=== PATIENT | male | born 1945 | race Hispanic/Latino ===

== ENCOUNTER 2022-04-03 16:07 | Emergency (ER) | payer MEDICARE ==
[~2022-04-03] VITALS: Ht 157.5 cm; Wt 83.0 kg
[~2022-04-03 16:07] MED LIST: AMLO-258 PO; GLIP10TA9 PO; HYDR25TA PO; LOSA100T58 PO; MAGN400C PO; METF-446 PO; PRAV40TA3 PO; [UNRECOGNIZED DRUG - CODE] PO
[2022-04-03 17:43] LABS: BASOPHILS % (AUTO) 0.4 % (0.0-5.0); EOSINOPHILS % (AUTO) 3.4 % (0.0-8.0); HEMATOCRIT 34.4 % (42-54); LYMPHOCYTES % (AUTO) 28.9 % (21.0-51.0); MEAN CORPUSCULAR HEMOGLOBIN 27.5 pg (27.0-33.0); MEAN CORPUSCULAR HGB CONC 31.4 g/dL (32.0-36.0); MEAN CORPUSCULAR VOLUME 87.5 fL (79-99); MONOCYTES % (AUTO) 8.2 % (3.0-13.0); NEUTROPHILS % (AUTO) 58.2 % (40.0-77.0); PLATELET COUNT (AUTO) 318 K/uL (130-400); RED BLOOD CELL COUNT(AUTO) 3.93 MIL/uL (4.50-6.20); RED CELL DISTRIBUTION WIDTH 12.8 % (11.0-15.5); WHITE BLOOD COUNT (AUTO) 12.4 K/uL (4.8-10.8)
[2022-04-03 17:52] LABS: CREATININE 2.2 mg/dL (0.5-1.5); POTASSIUM 4.4 mmol/L (3.5-5.1)
[2022-04-03 17:57] LABS: ALBUMIN 3.4 g/dL (3.5-5.0); BILIRUBIN,TOTAL 0.2 mg/dL (0.2-1.0); TOTAL PROTEIN, SERUM 7.8 g/dL (6.0-8.3)
[2022-04-03 18:07] LABS: B-TYPE NATRIURETIC PEPTIDE 398 pg/mL (0-100)
[2022-04-03 18:13] LABS: APPEARANCE,URINE Clear (CLEAR); BILIRUBIN,URINE Negative (NEGATIVE); COLOR,URINE Yellow (YELLOW); GLUCOSE, URINE (UA) TRACE mg/dL (NEGATIVE); KETONES,URINE Negative (NEGATIVE); LEUKOCYTE ESTERASE ,URINE Negative (NEGATIVE); NITRATE,URINE Negative (NEGATIVE); OCCULT BLOOD,URINE Trace (NEGATIVE); PH,URINE 5.5 (5.0-8.0); PROTEIN,URINE 300 mg/dL (NEGATIVE); UROBILINOGEN,URINE 0.2 mg/dL (0.2-1.0)
[2022-04-03 18:29] LABS: BACTERIA,URINE Rare /HPF (None Seen); RBC,URINE 0-1 /HPF (0-1); SQUAMOUS EPITHELIAL CELL,UR Rare /HPF (0-2); WBC,URINE 0-1 /HPF (0-1)
[2022-04-03] MEDS ORDERED: IPRATROPIUM/ALBUTEROL SULFATE 3 ML SOLUTION IH ONE (18:30)
[2022-04-03] MEDS ORDERED: SOLU-MEDROL 125MG VIAL IVP ONE (18:30)
[2022-04-03] MEDS ORDERED: CEPH500B PO (19:55)
[2022-04-03 19:59] VITALS: BP 145/68
== END 2022-04-03 20:03 | disposition home or self-care (01) ==
LOC: EDH 16:07
DX: J20.9 Acute bronchitis, unspecified (principal); E11.9 Type 2 diabetes mellitus without complications; E78.00 Pure hypercholesterolemia, unspecified; I10 Essential (primary) hypertension; Z79.899 Other long term (current) drug therapy; Z79.84 Long term (current) use of oral hypoglycemic drugs; Z98.890 Other specified postprocedural states
CPT/HCPCS: 36415; 71045; 80053; 81001; 83880; 84484; 85025; 94640; 96374; 99285; J2930

== ENCOUNTER → 2022-11-22 | Outpatient (CLI) | payer MEDICARE ==
[~2022-11-22] MED LIST changes: +CEPH500B PO
== END | disposition home or self-care (01) ==
LOC: SHCH 12:43
PROVIDERS: ATTEND Internal Medicine
DX: I34.0 Nonrheumatic mitral (valve) insufficiency (principal); I11.9 Hypertensive heart disease without heart failure
CPT/HCPCS: 93306

== ENCOUNTER 2022-12-02 02:41 | Inpatient (IN) | payer MEDICARE ==
[~2022-12-02] VITALS: Ht 157.5 cm; Wt 88.5 kg
[2022-12-02 04:23] LABS: BASOPHILS % (AUTO) 0.2 % (0.0-5.0); EOSINOPHILS % (AUTO) 1.9 % (0.0-8.0); HEMATOCRIT 36.9 % (42-54); LYMPHOCYTES % (AUTO) 41.7 % (21.0-51.0); MEAN CORPUSCULAR HEMOGLOBIN 28.7 pg (27.0-33.0); MEAN CORPUSCULAR HGB CONC 31.7 g/dL (32.0-36.0); MEAN CORPUSCULAR VOLUME 90.4 fL (79-99); MONOCYTES % (AUTO) 8.5 % (3.0-13.0); NEUTROPHILS % (AUTO) 47.3 % (40.0-77.0); PLATELET COUNT (AUTO) 196 K/uL (130-400); RED BLOOD CELL COUNT(AUTO) 4.08 MIL/uL (4.50-6.20); RED CELL DISTRIBUTION WIDTH 13.7 % (11.0-15.5); WHITE BLOOD COUNT (AUTO) 10.3 K/uL (4.8-10.8)
[2022-12-02 04:28] LABS: APPEARANCE,URINE CLEAR (CLEAR); BILIRUBIN,URINE NEGATIVE (NEGATIVE); COLOR,URINE LIGHT-YELLOW (YELLOW); GLUCOSE, URINE (UA) 50 mg/dL (NEGATIVE); KETONES,URINE NEGATIVE (NEGATIVE); LEUKOCYTE ESTERASE ,URINE NEGATIVE Leu/uL (NEGATIVE); NITRATE,URINE NEGATIVE (NEGATIVE); OCCULT BLOOD,URINE NEGATIVE (NEGATIVE); PROTEIN,URINE 200 mg/dL (NEGATIVE); UROBILINOGEN,URINE 0.2 mg/dL (0.2-1.0)
[2022-12-02 04:32] LABS: MUCUS,URINE RARE LPF (None Seen); RBC,URINE 0-1 /HPF (0-1); WBC,URINE 0-1 /HPF (0-1)
[2022-12-02 04:44] LABS: ALBUMIN 3.5 g/dL (3.5-5.0); POTASSIUM 4.4 mmol/L (3.5-5.1); TOTAL PROTEIN, SERUM 7.2 g/dL (6.0-8.3)
[2022-12-02] MEDS ORDERED: HYDRALAZINE 20MG/ML VIAL ONE (07:41)
[2022-12-02] MEDS ORDERED: HYDR-4154 PO (07:51)
[2022-12-02] MEDS ORDERED: ROSU10TA28 PO (07:51)
[2022-12-02] MEDS ORDERED: PIOG30TA70 PO (07:51)
[2022-12-02] MEDS ORDERED: ASPI-1005 PO (07:51)
[2022-12-02] MEDS ORDERED: CARV6.25 PO (07:51)
[2022-12-02] MEDS ORDERED: HYDRALAZINE 20MG/ML VIAL IV ONE (08:00)
[2022-12-02] MEDS ORDERED: IOHEXOL 350 MG/ML 100ML INFUS..BTL IV ONE (08:32)
[2022-12-02] MEDS ORDERED: LABETALOL 20MG VIAL IV SCH (09:00)
[2022-12-02] MEDS ORDERED: ONDANSETRON 4MG INJ IVP ONE (11:00)
[2022-12-02] MEDS ORDERED: MORPHINE 2 MG SYG IVP SCH (11:00)
[2022-12-02] MEDS ORDERED: ACETAMINOPHEN 500 MG TABLET PO PRN (12:30)
[2022-12-02] MEDS ORDERED: HYDROMORPHONE 0.5 MG SYG (0.5MG/0.5ML) IVP PRN (12:30)
[2022-12-02] MEDS ORDERED: HYDRALAZINE 20MG/ML VIAL IV PRN (12:30)
[2022-12-02] MEDS: PANTOPRAZOLE 40 MG/VIAL IVP SCH ×2 (12:30→12:44)
[2022-12-02 12:39] LABS: PROTHROMBIN TIME 10.9 SEC (9.6-11.6)
[2022-12-02 12:40] LABS: PARTIAL THROMBOPLASTIN TIME 29.4 SEC (26.3-35.5)
[2022-12-02 12:43] LABS: CARBON DIOXIDE 28 mmol/L (21-32); CHLORIDE 106 mmol/L (101-111); CREATININE 1.8 mg/dL (0.5-1.5); GLOMERULAR FILTR. RATE CALC 39 mL/min (>60); GLUCOSE,RANDOM 150 mg/dL (70-105); POTASSIUM 3.7 mmol/L (3.5-5.1); SODIUM SERUM 143 mmol/L (136-145); UREA NITROGEN, BLOOD 30 mg/dL (7-18)
[2022-12-02] MEDS: CARVEDILOL 6.25 MG TABLET PO SCH (12:43)
[2022-12-02] MEDS: HYDRALAZINE 25MG TABLET PO SCH ×2 (12:43→20:22)
[2022-12-02] MEDS: CEFTRIAXONE 1G VIAL IVP SCH (12:43)
[2022-12-02] MEDS: FUROSEMIDE 20MG VIAL IV SCH ×2 (12:44→20:23)
[2022-12-02 12:45] LABS: CRP QUANTITATIVE < 2.00 mg/L (0.00-9.0)
[2022-12-02] MEDS ORDERED: MAGNESIUM 2GM PREMIX 50ML 50 ML IV SCH (13:00)
[2022-12-02] MEDS ORDERED: LIDOCAINE 5% TOPICAL PATCH TP ONE (13:00)
[2022-12-02] MEDS ORDERED: LOSARTAN 50 MG TABLET PO SCH (13:00)
[2022-12-02] MEDS ORDERED: IPRATROPIUM 0.5 MG/2.5 ML INH IH PRN (13:00)
[2022-12-02 13:31] LABS: HEMOGLOBIN A1C 9.1 % (4.0-6.0)
[2022-12-02 13:40] LABS: THYROID STIMULATING HORMONE 3.14 uIU/mL (0.36-3.74)
[2022-12-02 13:59] LABS: INR 0.95 (0.85-1.15); PROTHROMBIN TIME 10.4 SEC (9.6-11.6)
[2022-12-02 14:01] LABS: PARTIAL THROMBOPLASTIN TIME 30.5 SEC (26.3-35.5)
[2022-12-02] MEDS: INSULIN HUMULIN R 100 UNIT/ML 3ML SQ SCH ×2 (16:30→20:23)
[2022-12-02 17:58] LABS: POTASSIUM 4.1 mmol/L (3.5-5.1)
[2022-12-02 20:20] VITALS: BP 152/74
[2022-12-02] MEDS: ATORVASTATIN 20 MG TABLET PO SCH (20:21)
[2022-12-02] MEDS: TAMSULOSIN HCL 0.4 MG CAP.ER.24H PO SCH (20:22)
[2022-12-02] MEDS: HEPARIN 5,000 UNIT VIAL SQ SCH (20:23)
[2022-12-02 20:52] VITALS: BP 182/80
[2022-12-03] VITALS (8 sets, daily range): BP systolic 111–142; BP diastolic 59–77
[2022-12-03] MEDS: CARVEDILOL 6.25 MG TABLET PO SCH (01:02)
[2022-12-03 04:17] LABS: BASOPHILS % (AUTO) 0.2 % (0.0-5.0); EOSINOPHILS % (AUTO) 0.2 % (0.0-8.0); LYMPHOCYTES % (AUTO) 29.5 % (21.0-51.0); MEAN CORPUSCULAR HEMOGLOBIN 28.6 pg (27.0-33.0); MEAN CORPUSCULAR HGB CONC 31.5 g/dL (32.0-36.0); MEAN CORPUSCULAR VOLUME 90.9 fL (79-99); MONOCYTES % (AUTO) 6.5 % (3.0-13.0); NEUTROPHILS % (AUTO) 63.1 % (40.0-77.0); PLATELET COUNT (AUTO) 194 K/uL (130-400); RED BLOOD CELL COUNT(AUTO) 3.74 MIL/uL (4.50-6.20); RED CELL DISTRIBUTION WIDTH 13.8 % (11.0-15.5)
[2022-12-03 04:41] LABS: ALBUMIN 3.4 g/dL (3.5-5.0); CREATININE 2.3 mg/dL (0.5-1.5); MAGNESIUM 2.1 mg/dL (1.80-2.40); POTASSIUM 4.2 mmol/L (3.5-5.1); TOTAL PROTEIN, SERUM 6.7 g/dL (6.0-8.3)
[2022-12-03] MEDS: FUROSEMIDE 20MG VIAL IV SCH (04:47)
[2022-12-03] MEDS: INSULIN HUMULIN R 100 UNIT/ML 3ML SQ SCH ×4 (05:32→19:42)
[2022-12-03] MEDS: HYDRALAZINE 25MG TABLET PO SCH ×3 (06:12→20:39)
[2022-12-03 09:27] LABS: PROTEIN,URINE RANDOM 238.4 mg/dL (0-11.9)
[2022-12-03] MEDS: ASPIRIN 81MG CHEW TAB PO SCH (09:32)
[2022-12-03] MEDS: HEPARIN 5,000 UNIT VIAL SQ SCH ×2 (09:38→20:39)
[2022-12-03] MEDS: PANTOPRAZOLE 40 MG/VIAL IVP SCH ×2 (12:30→12:54)
[2022-12-03] MEDS: CEFTRIAXONE 1G VIAL IVP SCH (12:55)
[2022-12-03] MEDS: SPIRONOLACTONE 25 MG TAB PO SCH (16:13)
[2022-12-03] MEDS: CLONIDINE HCL 0.1 MG TABLET PO SCH ×2 (16:15→19:43)
[2022-12-03] MEDS: AMLODIPINE 5 MG TAB PO SCH (16:15)
[2022-12-03] MEDS: TAMSULOSIN HCL 0.4 MG CAP.ER.24H PO SCH (20:38)
[2022-12-03] MEDS: ATORVASTATIN 20 MG TABLET PO SCH (20:39)
[2022-12-04] VITALS: BP 117/57
[2022-12-04] MEDS: HYDRALAZINE 25MG TABLET PO SCH ×2 (03:47→12:48)
[2022-12-04 04:00] VITALS: BP 137/55
[2022-12-04] MEDS: INSULIN HUMULIN R 100 UNIT/ML 3ML SQ SCH ×2 (05:39→11:56)
[2022-12-04 08:00] VITALS: BP 138/66
[2022-12-04] MEDS: METOCLOPRAMIDE 10 MG/2 ML VIAL IVP SCH ×2 (08:44→11:56)
[2022-12-04] MEDS: ASPIRIN 81MG CHEW TAB PO SCH (08:44)
[2022-12-04] MEDS: AMLODIPINE 5 MG TAB PO SCH (08:44)
[2022-12-04] MEDS: CLONIDINE HCL 0.1 MG TABLET PO SCH (08:44)
[2022-12-04] MEDS: SPIRONOLACTONE 25 MG TAB PO SCH (08:45)
[2022-12-04] MEDS: HEPARIN 5,000 UNIT VIAL SQ SCH (08:50)
[2022-12-04 08:52] LABS: BASOPHILS % (AUTO) 0.2 % (0.0-5.0); EOSINOPHILS % (AUTO) 1.6 % (0.0-8.0); HEMATOCRIT 35.9 % (42-54); LYMPHOCYTES % (AUTO) 43.4 % (21.0-51.0); MEAN CORPUSCULAR HEMOGLOBIN 28.1 pg (27.0-33.0); MEAN CORPUSCULAR HGB CONC 31.2 g/dL (32.0-36.0); MEAN CORPUSCULAR VOLUME 90.2 fL (79-99); MONOCYTES % (AUTO) 8.3 % (3.0-13.0); NEUTROPHILS % (AUTO) 46.1 % (40.0-77.0); PLATELET COUNT (AUTO) 197 K/uL (130-400); RED BLOOD CELL COUNT(AUTO) 3.98 MIL/uL (4.50-6.20); RED CELL DISTRIBUTION WIDTH 13.3 % (11.0-15.5); WHITE BLOOD COUNT (AUTO) 8.5 K/uL (4.8-10.8)
[2022-12-04 09:07] LABS: % IRON SATURATION 28.6 % (30-44)
[2022-12-04 09:13] LABS: B-TYPE NATRIURETIC PEPTIDE 45 pg/mL (0-100)
[2022-12-04 09:32] LABS: CREATININE 2.7 mg/dL (0.5-1.5); MAGNESIUM 2.2 mg/dL (1.80-2.40); POTASSIUM 3.9 mmol/L (3.5-5.1)
[2022-12-04] MEDS ORDERED: AMLO-257 PO (10:56)
[2022-12-04] MEDS ORDERED: CLON0.1T2 PO (10:56)
[2022-12-04] MEDS ORDERED: TAMS-1 PO (10:56)
[2022-12-04] MEDS ORDERED: SPIR25TA6 PO (10:56)
[2022-12-04] MEDS ORDERED: HYDR-4154 PO (10:56)
[2022-12-04] MEDS ORDERED: METO5SOL23 PO (10:56)
[2022-12-04 12:00] VITALS: BP 113/63
[2022-12-04] MEDS: CEFTRIAXONE 1G VIAL IVP SCH (12:43)
[2022-12-04] MEDS: PANTOPRAZOLE 40 MG/VIAL IVP SCH (12:49)
[2022-12-04 16:00] VITALS: BP 110/67
[2022-12-04] MEDS ORDERED: CARVEDILOL 6.25 MG TABLET PO SCH (21:00)
== END 2022-12-04 17:15 | disposition home or self-care (01) | DRG 291 ==
LOC: EDH 02:41 → EDHIP 12:26 → 4DH 18:27
PROVIDERS: ADMIT Internal Medicine; ATTEND Internal Medicine
DX: I13.0 Hypertensive heart and chronic kidney disease with heart failure and stage 1 through stage 4 chronic kidney disease, or unspecified chronic kidney disease (principal); I50.33 Acute on chronic diastolic (congestive) heart failure; I47.20 Ventricular tachycardia, unspecified; N17.9 Acute kidney failure, unspecified; Z16.24 Resistance to multiple antibiotics; E11.43 Type 2 diabetes mellitus with diabetic autonomic (poly)neuropathy; I16.0 Hypertensive urgency; E11.22 Type 2 diabetes mellitus with diabetic chronic kidney disease; E66.9 Obesity, unspecified; E78.00 Pure hypercholesterolemia, unspecified; K31.84 Gastroparesis; N18.32 Chronic kidney disease, stage 3b; N40.0 Benign prostatic hyperplasia without lower urinary tract symptoms; G47.33 Obstructive sleep apnea (adult) (pediatric); Z79.82 Long term (current) use of aspirin; Z79.84 Long term (current) use of oral hypoglycemic drugs; Z79.899 Other long term (current) drug therapy; Z87.442 Personal history of urinary calculi; Z91.199 Patient's noncompliance with other medical treatment and regimen due to unspecified reason; Z98.1 Arthrodesis status; Z68.35 Body mass index [BMI] 35.0-35.9, adult
CPT/HCPCS: 36415; 71045; 74177; 76705; 76770; 80048; 80053; 81001; 82550; 82570; 82607; 82728; 82746; 82948; 83036; 83540; 83550; 83605; 83690; 83735; 83880; 84145; 84156; 84300; 84443; 84484; 85025; 85045; 85610; 85651; 85730; 86140; 87088; 87635; 87804; 93005; 93970; 93975; C9113; G0378; J0360; J0696; J1170; J1644; J1815; J1940; J2405; J2765; J3475; J3490; Q9967

== ENCOUNTER → 2023-03-17 | Outpatient (CLI) | payer MEDICARE ==
[~2023-03-17] MED LIST changes: +AMLO-257 PO; -AMLO-258 PO; +ASPI-1005 PO; -CEPH500B PO; +CLON0.1T2 PO; +HYDR-4154 PO; -HYDR25TA PO; -LOSA100T58 PO; -MAGN400C PO; -METF-446 PO; +METO5SOL23 PO; +PIOG30TA70 PO; -PRAV40TA3 PO; +ROSU10TA28 PO; +SPIR25TA6 PO; +TAMS-1 PO
== END | disposition home or self-care (01) ==
LOC: SHCH 08:05
PROVIDERS: ATTEND Internal Medicine
DX: I10 Essential (primary) hypertension (principal); I42.0 Dilated cardiomyopathy; E11.9 Type 2 diabetes mellitus without complications; E78.5 Hyperlipidemia, unspecified
CPT/HCPCS: 93306

== ENCOUNTER 2023-07-19 08:52 | Emergency (ER) | payer MEDICARE ==
[~2023-07-19] VITALS: Ht 152.4 cm; Wt 81.6 kg
[2023-07-19 09:25] LABS: HEMATOCRIT 38.2 % (42-54); MEAN CORPUSCULAR HEMOGLOBIN 28.6 pg (27.0-33.0); MEAN CORPUSCULAR VOLUME 86.8 fL (79-99); RED BLOOD CELL COUNT(AUTO) 4.4 MIL/uL (4.50-6.20); RED CELL DISTRIBUTION WIDTH 13.1 % (11.0-15.5); WHITE BLOOD COUNT (AUTO) 14.5 K/uL (4.8-10.8)
[2023-07-19 09:41] LABS: POTASSIUM 4.5 mmol/L (3.5-5.1)
[2023-07-19 09:43] LABS: ALBUMIN 3.5 g/dL (3.5-5.0); BILIRUBIN,TOTAL 0.6 mg/dL (0.2-1.0); TOTAL PROTEIN, SERUM 7.5 g/dL (6.0-8.3)
[2023-07-19] MEDS ORDERED: CARV12.511 PO (10:20)
[2023-07-19] MEDS ORDERED: LOSA50TA64 PO (10:20)
[2023-07-19] MEDS ORDERED: IOHEXOL 350 MG/ML 100ML INFUS..BTL IV ONE (11:29)
[2023-07-19] MEDS ORDERED: LABETALOL 20MG SYG IV ONE (11:30)
[2023-07-19 13:23] LABS: APPEARANCE,URINE CLEAR (CLEAR); BILIRUBIN,URINE NEGATIVE (NEGATIVE); COLOR,URINE LIGHT-YELLOW (YELLOW); GLUCOSE, URINE (UA) >=1000 mg/dL (NEGATIVE); KETONES,URINE NEGATIVE (NEGATIVE); LEUKOCYTE ESTERASE ,URINE NEGATIVE Leu/uL (NEGATIVE); NITRATE,URINE NEGATIVE (NEGATIVE); OCCULT BLOOD,URINE NEGATIVE (NEGATIVE); PH,URINE 6.5 (5.0-8.0); PROTEIN,URINE 200 mg/dL (NEGATIVE); UROBILINOGEN,URINE 0.2 mg/dL (0.2-1.0)
[2023-07-19 13:24] LABS: ADD UA MICROSCOPIC YES
[2023-07-19 13:34] LABS: MUCUS,URINE RARE LPF (None Seen); RBC,URINE 0-1 /HPF (0-1); WBC,URINE 0-1 /HPF (0-1)
[2023-07-19 15:50] VITALS: BP 155/68; PULSE 69; RESP 16; O2SAT 97
== END 2023-07-19 16:02 | disposition home or self-care (01) ==
LOC: EDH 08:52
DX: S13.9XXA Sprain of joints and ligaments of unspecified parts of neck, initial encounter (principal); I10 Essential (primary) hypertension; E78.00 Pure hypercholesterolemia, unspecified; E11.9 Type 2 diabetes mellitus without complications; Z79.82 Long term (current) use of aspirin; Z79.84 Long term (current) use of oral hypoglycemic drugs; Z79.899 Other long term (current) drug therapy; X58.XXXA Exposure to other specified factors, initial encounter; Y93.89 Activity, other specified; Y92.89 Other specified places as the place of occurrence of the external cause; Y99.8 Other external cause status
CPT/HCPCS: 99285; 71250; 96374; 71045; 84484; 80053; 83880; 85027; 81001; 36415; 70496; 70498; 74176; 93005; Q9967

== ENCOUNTER 2023-11-28 10:14 | Emergency (ER) | payer MEDICARE ==
[~2023-11-28] VITALS: Ht 157.5 cm; Wt 83.0 kg
[~2023-11-28 10:14] MED LIST changes: -AMLO-257 PO; -ASPI-1005 PO; +CARV12.511 PO; +CLON0.1T PO; -CLON0.1T2 PO; -GLIP10TA9 PO; -HYDR-4154 PO; +HYDR100T27 PO; +INSU100I15 SQ; +INSU3INS3 SQ; -METO5SOL23 PO; +OLME-9 PO; -PIOG30TA70 PO; +SEMA0.258 SQ; -SPIR25TA6 PO; -[UNRECOGNIZED DRUG - CODE] PO
[2023-11-28 10:31] VITALS: BP 143/60; PULSE 68; RESP 17; O2SAT 97
[2023-11-28 12:47] LABS: APPEARANCE,URINE CLEAR (CLEAR); BILIRUBIN,URINE NEGATIVE (NEGATIVE); COLOR,URINE LIGHT-YELLOW (YELLOW); GLUCOSE, URINE (UA) 50 mg/dL (NEGATIVE); KETONES,URINE NEGATIVE (NEGATIVE); LEUKOCYTE ESTERASE ,URINE NEGATIVE Leu/uL (NEGATIVE); NITRATE,URINE NEGATIVE (NEGATIVE); OCCULT BLOOD,URINE NEGATIVE (NEGATIVE); PROTEIN,URINE 70 mg/dL (NEGATIVE); UROBILINOGEN,URINE 0.2 mg/dL (0.2-1.0)
[2023-11-28 12:56] LABS: ADD UA MICROSCOPIC YES; RBC,URINE 0-1 /HPF (0-1); SQUAMOUS EPITHELIAL CELL,UR RARE /HPF (0-2)
[2023-11-28] MEDS: TIZANIDINE HCL 2 MG TABLET PO SCH (13:37)
[2023-11-28] MEDS: PREDNISONE 20 MG TABLET PO ONE (13:37)
[2023-11-28] MEDS: IBUPROFEN 600 MG TABLET PO ONE (13:37)
[2023-11-28] MEDS ORDERED: METH-811 PO (13:50)
[2023-11-28] MEDS ORDERED: PRED20TA3 PO (13:50)
== END 2023-11-28 13:57 | disposition home or self-care (01) ==
LOC: EDH 10:14
DX: S39.012A Strain of muscle, fascia and tendon of lower back, initial encounter (principal); I10 Essential (primary) hypertension; E78.00 Pure hypercholesterolemia, unspecified; Z79.899 Other long term (current) drug therapy; Z98.890 Other specified postprocedural states; X58.XXXA Exposure to other specified factors, initial encounter; Y93.89 Activity, other specified; Y92.89 Other specified places as the place of occurrence of the external cause; Y99.8 Other external cause status
CPT/HCPCS: 72100; 81001

== ENCOUNTER 2024-04-11 02:46 | Emergency (ER) | payer MEDICARE ==
[~2024-04-11] VITALS: Ht 157.5 cm; Wt 79.4 kg
[~2024-04-11 02:46] MED LIST changes: +HYDR100T15 PO; -HYDR100T27 PO; +METH-811 PO; +OLME-30 PO; -OLME-9 PO; +PRED20TA3 PO; -ROSU10TA28 PO; +ROSU10TA72 PO
[2024-04-11] MEDS: MAGNESIUM CITRATE 296 ML SOLUTION PO ONE (03:08)
[2024-04-11] MEDS: LACTULOSE 20 GM/30 ML UDCUP PO ONE (03:08)
[2024-04-11 03:18] LABS: APPEARANCE,URINE CLEAR (CLEAR); BACTERIA,URINE Rare /HPF (None Seen); BILIRUBIN,URINE NEGATIVE (NEGATIVE); COLOR,URINE COLORLESS (YELLOW); GLUCOSE, URINE (UA) 30 mg/dL (NEGATIVE); KETONES,URINE NEGATIVE (NEGATIVE); LEUKOCYTE ESTERASE ,URINE NEGATIVE Leu/uL (NEGATIVE); NITRATE,URINE NEGATIVE (NEGATIVE); OCCULT BLOOD,URINE NEGATIVE (NEGATIVE); PH,URINE 6.5 (5.0-8.0); PROTEIN,URINE 70 mg/dL (NEGATIVE); UROBILINOGEN,URINE 0.2 mg/dL (0.2-1.0); WBC,URINE 0-1 /HPF (0-1)
[2024-04-11] MEDS ORDERED: LACT10SO85 PO (05:01)
[2024-04-11 05:20] VITALS: BP 158/87; PULSE 65; RESP 18; O2SAT 97
== END 2024-04-11 05:21 | disposition home or self-care (01) ==
LOC: EDH 02:46
DX: K59.00 Constipation, unspecified (principal); E11.9 Type 2 diabetes mellitus without complications; E78.00 Pure hypercholesterolemia, unspecified; I10 Essential (primary) hypertension; Z79.4 Long term (current) use of insulin; Z79.52 Long term (current) use of systemic steroids; Z79.899 Other long term (current) drug therapy
CPT/HCPCS: 74176; 81001